=== PATIENT | female | born 1975 | race Caucasian/White ===

== ENCOUNTER 2018-02-05 20:42 | Emergency (ER) | payer BC ==
[~2018-02-05] VITALS: Ht 162.6 cm; Wt 94.2 kg
[~2018-02-05 20:42] MED LIST: AMOXICILLIN500 MG PO; MOTRIN IB200 MG OR; NO HOME MEDS; PEPTO-BISMOL262 MG OR; PROMETHAZINE25 MG PO; PROMETHAZINE25 MG RE; TORADOL OR; [UNRECOGNIZED DRUG - OTHER] OR
[2018-02-05] MEDS ORDERED: NOVOLOG100 UNIT/M (20:50)
[2018-02-05] MEDS ORDERED: TRESIBA FL100 UNIT/M SC (20:50)
[2018-02-05] MEDS ORDERED: METFORMIN500 MG PO (20:51)
[2018-02-05] MEDS ORDERED: NEURONTIN300 MG PO (20:51)
[2018-02-05] MEDS ORDERED: LISINOPRIL5 MG PO (20:51)
[2018-02-05] MEDS ORDERED: BENADRYL 50MG C50 MG PO (21:59)
[2018-02-05] MEDS ORDERED: GENTAMICIN15 ML/BTL OS (21:59)
[2018-02-05 22:10] VITALS: BP 148/85
== END 2018-02-05 22:10 | disposition home or self-care (01) | DRG 125 ==
LOC: ED 20:42
DX: H10.12 Acute atopic conjunctivitis, left eye (principal); E11.40 Type 2 diabetes mellitus with diabetic neuropathy, unspecified; I10 Essential (primary) hypertension